=== PATIENT | female | born 1940 | race Caucasian/White ===

== ENCOUNTER 2019-11-29 13:27 | Outpatient (CLI) | payer MEDICARE ==
--- NOTE | 2019-11-29 16:23 | RAD ---
RIGHT KNEE FOUR VIEWS: Date: 11-29-2019 FINDINGS: No fracture or joint effusion was seen. The joint space is normal in width and arthritic changes are extremely minimal for age. There is ossification of the tendinous insertions on the patella. IMPRESSION: No acute bony finding. POS: HOME
== END 2019-11-29 13:28 | disposition home or self-care (01) ==
LOC: BURRAD 13:27
PROVIDERS: ATTEND Family Medicine
DX: M25.561 Pain in right knee (principal)

== ENCOUNTER 2020-10-10 17:47 | Emergency (ER) | payer MEDICARE ==
[~2020-10-10 17:47] MED LIST: Iopamidol 370 76% 100 ML VIAL ONE
[2020-10-10 18:34] LABS: #Basophils 0.1 thou/uL (0.0-0.2); #Lymphocytes 2.1 thou/uL (1.20-3.40); #Monocytes 0.9 thou/uL (0.11-0.59); #Neutrophils 9.6 thou/uL (1.40-6.50); %Basophils 0.7 % (0.0-1.0); %Lymphocytes 16.7 % (21.0-51.0); %Monocytes 6.8 % (0.0-10.0); %Neutrophils 75.8 % (42.0-75.0); Hemoglobin 12.1 g/dL (12.0-16.0); Mean Corpuscular HGB CONC 32.2 g/dL (32.0-36.0); Mean Corpuscular Hemoglobin 28.8 pg (27.0-31.0); Mean Corpuscular Volume 89.6 fL (78.0-98.0); Platelet Count 136 thou/uL (130-400); RBC Distribution Width 13.3 % (11.5-14.5); Red Blood Cell (RBC) Count 4.19 mill/uL (4.20-5.40); White Blood Cell (WBC) Count 12.7 thou/uL (4.8-10.8)
[2020-10-10 18:45] LABS: ALT (SGPT) 14 U/L (8-55); AST (SGOT) 19 U/L (5-34); Albumin 3.4 g/dL (3.4-4.8); Alkaline Phosphatase 59 U/L (40-110); Anion Gap 15 mmol/L (10-20); BUN (Urea Nitrogen) 20 mg/dL (9.8-20.1); Bilirubin, Total 0.8 mg/dL (0.2-1.2); Calc. Creatinine Clearance 0 mL/min (70-130); Calcium 9.4 mg/dL (7.8-10.44); Carbon Dioxide 26 mmol/L (23-31); Chloride 98 mmol/L (98-107); Globulin 3.7 g/dL (2.4-3.5); Glucose 186 mg/dL (83-110); Lipase 10 U/L (8-78); Potassium 3.6 mmol/L (3.5-5.1); Protein, Total 7.1 g/dL (5.8-8.1); Sodium 135 mmol/L (136-145)
[2020-10-10 21:10] LABS: Bilirubin Negative (Negative); Blood, Urine Moderate (Negative); Clarity Slightly Cloudy (Clear); Glucose, Urine (Dipstick) Negative (Negative); Ketone, Urine Negative (Negative); Leukocyte Small (Negative); Nitrite Positive (Negative); Protein, Urine (Dipstick) Negative (Neg-Trace); pH, Urine 7.5 (5.0-9.0)
[2020-10-10 21:11] LABS: Bacteria/HPF 2+ HPF (None Seen); Squamous Epithelial 0-3 HPF (0-3)
[2020-10-10] MEDS ORDERED: predniSONE 20 MG TAB ONE (22:07)
[2020-10-10] MEDS ORDERED: Cephalexin 250 MG CAP ONE (22:07)
[2020-10-10] MEDS ORDERED: metroNIDAZOLE 250 MG TAB ONE (22:07)
== END 2020-10-10 22:20 | disposition home or self-care (01) ==
LOC: BURERS 17:47
DX: N39.0 Urinary tract infection, site not specified (principal); K52.9 Noninfective gastroenteritis and colitis, unspecified; I10 Essential (primary) hypertension
CPT/HCPCS: 36415; 71045; 74177; 80053; 81003; 81015; 83605; 83690; 83880; 84484; 85025; 87040; 93005; J7512; Q9967

== ENCOUNTER 2022-07-02 14:17 | Emergency (ER) | payer MEDICARE, OTHER ==
[2022-07-02] MEDS ORDERED: Boostrix 0.5 ML (Tdap) VIAL (>/=7 yrs of age) ONE (14:53)
[2022-07-02] MEDS ORDERED: Ondansetron ODT 4 MG TAB ONE (14:57)
[2022-07-02] MEDS ORDERED: traMADol HCl 50 MG TAB ONE (14:57)
== END 2022-07-02 16:15 | disposition home or self-care (01) ==
LOC: BURERS 14:17
DX: S01.01XA Laceration without foreign body of scalp, initial encounter (principal); M25.552 Pain in left hip; I10 Essential (primary) hypertension; Z23 Encounter for immunization; W01.198A Fall on same level from slipping, tripping and stumbling with subsequent striking against other object, initial encounter
CPT/HCPCS: 12001; 70450; 72125; 74177; 90471; 90715; Q0162

== ENCOUNTER 2022-07-09 13:25 | Emergency (ER) | payer MEDICARE | END 2022-07-09 13:50 | disposition home or self-care (01) | LOC: BURERS 13:25 | DX: S01.01XD Laceration without foreign body of scalp, subsequent encounter (principal); I10 Essential (primary) hypertension; W17.89XD Other fall from one level to another, subsequent encounter ==